=== PATIENT | female | born 1940 | race African-American/Black ===

== ENCOUNTER 2017-07-23 10:57 | Emergency (ER) | payer OTHER, MEDICAID ==
[~2017-07-23] VITALS: Ht 152.4 cm; Wt 45.0 kg
[2017-07-23 11:40] VITALS: BP 119/59
[2017-07-23] MEDS ORDERED: KETOROLAC 15MG/ML VIAL IM ONE (11:45)
== END 2017-07-23 12:22 | disposition home or self-care (01) ==
LOC: ER 11:36
DX: M25.512 Pain in left shoulder (principal); I10 Essential (primary) hypertension; I25.10 Atherosclerotic heart disease of native coronary artery without angina pectoris; Z88.0 Allergy status to penicillin; Z88.2 Allergy status to sulfonamides; W06.XXXA Fall from bed, initial encounter; Y93.84 Activity, sleeping; Y92.89 Other specified places as the place of occurrence of the external cause; Y99.8 Other external cause status
CPT/HCPCS: 73030; 96372; 99284; J1885